=== PATIENT | female | born 2005 | race Two or more races ===

== ENCOUNTER 2025-06-18 13:35 | Inpatient (IN) | payer MEDICAID ==
[~2025-06-18] VITALS: Ht 160 cm; Wt 110.3 kg
--- NOTE | 2025-06-18 14:57 | ED.PDOC ---
GI ASSESSMENT HPI Comments [id number] FEMALE PRESENTS WITH A CHIEF COMPLAINT OF ABDOMINAL PAIN X MONTHS, BUT WORSENING TODAY WITH ASSOCIATED NAUSEA AND VOMITING. PATIENT STATES THAT HER PAIN IS LOCALIZED TO HER EPIGASTRIC REGION, RADIATING TO HER BACK SIDE AND UPPER CHEST WALL, DESCRIBES SHARP PAIN, AND RATES HER PAIN A 8/10 AT THIS TIME. PAT PHIL MENTIONS THAT SHE HAS HAD PAIN LIKE THIS BEFORE IN THE PAST, BUT NOT STRONG IT IS TODAY. PATIENT MENTIONS THAT IT HAS BEEN OFF AND ON FOR MONTHS. PT DENIES FEVER, SOB, HEADACHE, DIZZINESS AND OTHER COMPLAINTS. NO OTHER SYMPTOMS REPORTED AT THIS TIME OF CARE. Chief Complaint: Nausea/Vomiting Time Seen by MD: 14:50 Primary Care Provider: ALINE Oliva Notes: Nurses Notes, Medications, Allergies Allergies: Coded Allergies: NO KNOWN ALLERGIES (Unverified , 01/08/16) Information Source: Patient Mode of Arrival: Ambulatory Timing: Hours, Days, Months Duration: Since onset, Intermittent, Days Prehospital treatment: None Quality: Cramping, Sharp, Colicky Vomitus: Food Particles Stool: Normal Severity: Moderate Recent: None Recent Hx of: None Pain Location: Epigastric Associated sign and symptoms: Nausea, Vomiting, Abdominal Pain Past Medical History PAST MEDICAL HISTORY: Denies Surgical History: Denies all surgeries SOURCING SPECIALIST History: Denies all SOURCING SPECIALIST Hx Family History Family History: Reviewed,noncontributory to illness Social History Smoker: Non-Smoker Alcohol: Denies ETOH Use Drugs: Denies Drug Use Lives In: Home Constitutional: reports: others (ANXIOUS ); denies: chills, diaphoresis, fatigue, fever, malaise, sweats, weakness EENTM: denies: blurred vision, double vision, ear bleeding, ear discharge, ear drainage, ear pain, ear ringing, eye pain, eye redness, hearing loss, mouth pain, mouth swelling, nasal discharge, nose bleeding, nose congestion, nose pain, photophobia, tearing, throat pain, throat swelling, voice changes, others Respiratory: denies: cough, hemoptysis, orthopnea, SOB at rest, shortness of breath, SOB with excertion, stridor, wheezing, others Cardiovascular: denies: chest pain, dizzy spells, diaphoresis, Dyspnea on exertion, edema, irregular heart beat, left arm pain, lightheadedness, pal pitations, PND, syncope, others Gastrointestinal: reports: abdominal pain, nausea, vomiting; denies: abdomen distended, blood streaked bowels, constipated, diarrhea, dysphagia, difficulty swallowing, hematemesis, melena, poor appetite, poor fluid intake, rectal bleeding, rectal pain, others Genitourinary: denies: abnormal vagina bleeding, burning, dyspareunia, dysuria, flank pain, frequency, hematuria, incontinence, pain, , vagina discharge, urgency, others Neurological: denies: dizziness, fainting, headache, left sided numbness, left sided weakness, numbness, paresthesia, pre-existing deficit, right sided numbness, right sided weakness, seizure, speech problems, tingling, tremors, weakness, others Musculoskeletal: denies: back pain, gout, joint pain, joint swelling, muscle pain, muscle stiffness, neck pain, others Integumetry: denies: bruises, change in color, change in hair/nails, dryness, laceration, lesions, lumps, rash, wounds, others Allergic/Immunocompromised: denies: Difficulty Healing, Frequent Infections, Hives, Itching, others Hematologic/Lymphatic: denies: anemia, blood clots, easy bleeding, easy bruising, swollen glands, others Endocrine: denies: excessive hunger, excessive sweating, excessive thirst, excessive urination, flushing, intolerance to cold, intolerance to heat, unexplained weight gain, unexplained weight loss, others Psychiatric: reports: anxiety; denies: bipolar disorder, depression, hopeless, panic disorder, schizophrenia, sleepless, suicidal, others All Other Systems: Reviewed and Negative Physical Exam General Appearance: Mild Distress, Obese, Other (ANXIOUS ) HEENT: Normal ENT Inspection, PERRL/EOMI, Pharynx Normal, TMs Normal Neck: Full Range of Motion, Non-Tender, Normal, Normal Inspection Respiratory: Chest Non-Tender, Lungs Clear, No Accessory Muscle Use, No Respiratory Distress, Normal Breath Sounds Cardiovascular: No Edema, No JVD, No Murmur, No Gallop, Normal Peripheral Pulses, Regular Rate/Rhythm Breast Exam: Deferred Gastrointestinal: Epigastric, No Organomegaly, No Pulsatile Mass, Normal Bowel Sounds, Soft, Tenderness (EPIGASTRIC, NO GUARDING AND REBOUND TENDERNESS. ) Genitalia: Deferred Pelvic: Deferred Rectal: Deferred Extremities: No calf tenderness, Normal capillary refill, Normal inspection, Normal range of motion, Non-tender, No pedal edema Musculoskeletal : Apperance: Normal Neurologic: Alert, remote control assembler II-XII nml as Tested, No Motor Deficits, Normal Affect, Normal Mood, No Sensory Deficits Cerebellar Function: Normal Reflexes: Normal Skin: Dry, Normal Color, Warm Peripheral Pulses: 2+ carotid (R), 2+ carotid (L) Lymphatic: No Adenopathy EKG EKG : Pulse Rate (adult): 57 [place]: Normal Block: None Hypertrophy: None ST: Normal Was a procedure done? Was a procedure done?: No GI differential Dx Differential Diagnosis: Cholangitis, Cholecystitis, Constipation, Gastritis/PUD, Gastroenteritis, Inflammatory BD, Pancreatitis, UTI, Urolithiasis X-Ray, Labs, Meds, VS Vital Signs Date Time Temp Pulse Resp B/P (MAP) Pulse Ox O2 Delivery O2 Flow Rate FiO2 06/18/25 17:32 98.3 71 17 98/78 (85) 98 98.3 06/18/25 16:19 57 06/18/25 14:48 57 06/18/25 14:43 97.7 72 117/49 (71) 99 97.7 06/18/25 14:40 Room Air* 0 21 06/18/25 13:36 97.6 64 18 106/61 100 97.6 Lab Test 06/18/25 16:50 06/18/25 15:27 Range/Units Urine Color Yellow Yellow Urine Clarity Turbid H Clear Urine pH 7.5 5.0-9.0 Urine Specific [place] 1.028 1.001-1.035 Urine Protein Trace H Negative Urine Ketones Negative Negative Urine Blood Negative Negative /uL Urine Nitrite Negative Negative Urine Bilirubin Negative Negative Urine Urobilinogen 2 H Negative mg/dL Urine Leukocyte Esterase Negative Negative /uL Urine RBC 2 0 - 4 /hpf Urine Microscopic WBC 3 0-5 /HPF Urine Squamous Epithelial Cells Mod <5 /hpf Urine Bacteria None seen None Seen /hpf Urine Mucus Few None Seen Urine Glucose Normal Normal mg/dL Urine Test Negative Negative White Blood Count 11.7 H 4.4-10.8 10^3/uL Red Blood Count 4.36 4.0-5.20 10^6/uL Hemoglobin 11.3 L 12.2-16.2 g/dL Hematocrit 35.2 L 36.0-46.0 % Mean Corpuscular Volume 80.8 80.0-100.0 fL Mean Corpuscular Hemoglobin 26.0 L 28.0-32.0 pg Mean Corpuscular Hemoglobin Concent 32.2 32.0-36.0 g/dL Red Cell Distribution Width 16.6 H 11.8-14.3 % Platelet Count 388 140-450 10^3/uL Mean Platelet Volume 7.5 6.9-10.8 fL Neutrophils (%) (Auto) 88.4 H 37.0-80.0 % Lymphocytes (%) (Auto) 6.7 L 10.0-50.0 % Monocytes (%) (Auto) 4.6 0.0-12.0 % Eosinophils (%) (Auto) 0.1 0.0-7.0 % Basophils (%) (Auto) 0.2 0.0-2.0 % Neutrophils # (Auto) 10.3 H 1.6-8.6 10 ^3/uL Lymphocytes # (Auto) 0.8 0.4-5.4 10 ^3/uL Monocytes # (Auto) 0.5 0-1.3 10 ^3/uL Eosinophils # (Auto) 0 0-0.8 10 ^3/uL Basophils # (Auto) 0 0-0.2 10 ^3/uL Nucleated Red Blood Cells 0.0 % Sodium Level 141 136-145 mmol/L Potassium Level 4.7 3.5-5.1 mmol/L Chloride Level 108 H 98-107 mmol/L Carbon Dioxide Level 25 20-31 mmol/L Anion Gap 8 5-15 Blood Urea Nitrogen 8 L 9-23 mg/dL Creatinine 0.68 0.550-1.02 mg/dL Glomerular Filtration Rate Calc 126 >90 mL/min BUN/Creatinine Ratio 11.8 10.0-20.0 Serum Glucose 130 H 74-106 mg/dL Calcium Level 8.8 8.7-10.4 mg/dL Total Bilirubin 0.5 0.2-1.0 mg/dL Aspartate Amino Transferase (AST) 68 H 13-40 U/L Alanine Aminotransferase (ALT) 40 7-40 U/L Alkaline Phosphatase 76 46-116 U/L Troponin I High Sensitivity < 3 L </=34 ng/L Total Protein 7.1 5.7-8.2 g/dL Albumin 4.4 3.2-4.8 g/dL Lipase > 3500 H 12-53 U/L PATIENT: NAYLA CASTROCCT: [id number]: [id number] : 2005 LOC: ER ROOM / BED: / AGE / SEX: 20 / F ADM STATUS: REG ER SERVICE [id number] ORDERING PHYSICIAN: IRMA ZURITA PROCEDURE(s): GBUS - GALLBLADDER REASON: EPIGASTRIC PAIN TO MIDDLE BACK ORDER NUMBER(s): [id number], ACCESSION NUMBER(s): [id number] INDICATION: EPIGASTRIC PAIN TO MIDDLE BACK TECHNIQUE: Multiple real-time sonographic images of the abdomen were obtained. COMPARISON: None FINDINGS: The liver is homogenous in echogenicity. The liver measures 18 cm. No intrahepatic biliary ductal dilatation is noted. The gallbladder wall measures 0. 2 4 cm and is unremarkable. Mobile gallstones noted in the gallbladder. The common duct measures 0.68 cm and is unremarkable. No pericholecystic fluid is noted. The right kidney measures 9.55 cm. No hydronephrosis. The pancreas is not well visualized due to obscuration from bowel gas. IMPRESSION: 1. Multiple small gallstones in the gallbladder. Common bile duct upper limits of normal. 2. Negative sonographic Moura's sign ATED BY: ODELL OLVERA Jr., DO DICTATED DATE/TIME: 06/18/25 160 SIGNED BY: ODELL OLVERA Jr., SIGNED DATE/TIME: 06/18/25 160 CC: X-Ray, Labs, Meds, VS Comment EXTERNAL MEDICAL RECORDS REVIEWED: [NONE] INDEPENDENT HISTORIANS: [NONE] SOCIAL DETERMINANTS OF HEALTH: [NONE] LABS ORDERED: CBC, CMP, LIPASE, UA, REVIEWED AND INTERPRETED RESULTS: LIPASE>3000 IMAGING ORDERED: GALLBLADDER US TREATMENTS ORDERED: 0.9 NS 1L, ZOFRAN 4MG IVP, TORADOL 30MG IVP AND ROCEPHIN 1GM IVPB PROCEDURES PERFORMED: NONE CRITICAL CARE TIME: NONE I HAVE DISCUSSED THE PATIENT WITH THE ATTENDING PHYSICIAN, DR. AMINA GUTIERREZ, AND SHE AGREES WITH THE PATIENT'S PLAN OF CARE AND DISPOSITION. BASED ON HISTORY OF PRESENT ILLNESS, AND PHYSICAL EXAM, PATIENT WILL BE ADMITTED [facility] FOR FURTHER EVALUATION AND TREATMENT. Images Reviewed?: Images reviewed and evaluated by me Time of 1ST Reevaluation: 15:20 Reevaluation 1ST: Unchanged Time of 2ND Reevaluation: 17:45 Reevaluation 2ND: Unchanged Patient Education/Counseling: Diagnosis, Treatment Family Education/Counseling: Diagnosis, Treatment SEPSIS Sepsis Screen Date sepsis recognized/suspect: Jun 18, 2025 Time Sepsis recognized/suspect: 1341 Recent Procedure: No On Antibiotic Therapy: No Respiratory Rate >20: No Heart Rate >90: No Temp<36 C (96.8 F) or >38.3 C: No SBP <90 or MAP <65 mmHG: No New Acute Mental Status Change: No Is the patient on CPAP, BIPAP,: No Physician Orders Gallbladder (06/18/25 14:53) Heplock Iv (06/18/25 ) Sodium Chloride 0.9% (06/18/25 17:30) Ceftriaxone 1gm/50ml D5w (Rocephin) (06/18/25 17:30) Vital Signs Date Time Temp Pulse Resp B/P (MAP) Pulse Ox O2 Delivery O2 Flow Rate FiO2 06/18/25 17:32 98.3 71 17 98/78 (85) 98 98.3 06/18/25 16:19 57 06/18/25 14:48 57 06/18/25 14:43 97.7 72 117/49 (71) 99 97.7 06/18/25 14:40 Room Air* 0 21 06/18/25 13:36 97.6 64 18 106/61 100 97.6 Laboratory Tests Test 06/18/25 15:27 White Blood Count 11.7 10^3/uL (4.4-10.8) H Departure 1 Departure Time of Disposition: 17:44 Impression: Primary Impression: Cholelithiases Qualified Codes: K80.20 - Calculus of gallbladder without cholecystitis without obstruction Additional Impression: Acute pancreatitis Qualified Codes: K85.00 - Idiopathic acute pancreatitis without necrosis or infection Disposition: 09 ADMITTED INPATIENT Admit to: Med Surg Condition: Serious Critical Care Note Critical Care Time?: No Stability Stability form required: Yes Unstable for transfer: Requires medication, ED Physician Assesment, Possible rapid decline Heart Score Heart Score: Heart Score Response (Comments) Value History N/A 0 EKG N/A 0 Age N/A 0 Risk Factors N/A 0 Troponin N/A 0 Total 0 I personally scribed for IRMA ZURITA ([email or web address]) on 06/18/25 at 14:57. Electronically submitted by Florentin Godfrey ([email or web address]). I personally scribed for IRMA ZURITA ([email or web address]) on 06/18/25 at 16:57. Electronically submitted by Florentin Godfrey ([email or web address]). I personally scribed for IRMA ZURITA ([email or web address]) on 06/18/25 at 17:17. El ectronically submitted by Florentin Godfrey ([email or web address]). IRMA ZURITA Jun 18, 2025 14:57
[2025-06-18 15:47] LABS: Hematocrit 35.2 % (36.0-46.0); Hemoglobin 11.3 g/dL (12.2-16.2); Mean Corpuscular Hemoglobin 26.0 pg (28.0-32.0); Mean Corpuscular Volume 80.8 fL (80.0-100.0); Nucleated Red Blood Cells % 0.0 %
[2025-06-18 16:03] LABS: Albumin 4.4 g/dL (3.2-4.8); Alkaline Phosphatase 76 U/L (46-116); Anion Gap 8 (5-15); BUN/Creatinine Ratio 11.8 (10.0-20.0); Bilirubin, Total 0.5 mg/dL (0.2-1.0); Calcium 8.8 mg/dL (8.7-10.4); Carbon Dioxide 25 mmol/L (20-31); Potassium 4.7 mmol/L (3.5-5.1); Sodium 141 mmol/L (136-145); Total Protein 7.1 g/dL (5.7-8.2)
[2025-06-18 16:05] LABS: Alanine Aminotransferase 40 U/L (7-40); Blood Urea Nitrogen 8 mg/dL (9-23); Chloride 108 mmol/L (98-107); Glucose 130 mg/dL (74-106)
--- NOTE | 2025-06-18 16:05 | DVH ---
INDICATION: EPIGASTRIC PAIN TO MIDDLE BACK TECHNIQUE: Multiple real-time sonographic images of the abdomen were obtained. COMPARISON: None FINDINGS: The liver is homogenous in echogenicity. The liver measures 18 cm. No intrahepatic biliary ductal dilatation is noted. The gallbladder wall measures 0. 2 4 cm and is unremarkable. Mobile gallstones noted in the gallbla dder. The common duct measures 0.68 cm and is unremarkable. No pericholecystic fluid is noted. The right kidney measures 9.55 cm. No hydronephrosis. The pancreas is not well visualized due to obscuration from bowel gas. IMPRESSION: 1. Multiple small gallstones in the gallbladder. Common bile duct upper limits of normal. 2. Negative sonographic Moura's sign
[2025-06-18 16:18] LABS: Lipase > 3500 U/L (12-53)
[2025-06-18 17:10] LABS: Urine Protein, UAD TRACE (Negative)
[2025-06-18] MEDS: ONDANSETRON HCL 4 MG/2 ML VIAL IV ONE (18:23)
[2025-06-18] MEDS: SODIUM CHLORIDE 0.9% 1,000 ML IV ONE (18:24)
[2025-06-18] MEDS: KETOROLAC TROMETH 30 MG/ML 1ML VIAL IV ONE (18:24)
--- NOTE | 2025-06-18 18:57 | DVHHP2 ---
Admitting Diagnosis: Abdominal pain History of Present Illness [id number] FEMALE PRESENTS WITH A CHIEF COMPLAINT OF ABDOMINAL PAIN X MONTHS, BUT WORSENING TODAY WITH ASSOCIATED NAUSEA AND VOMITING. PATIENT STATES THAT HER PAIN IS LOCALIZED TO HER EPIGASTRIC REGION, RADIATING TO HER BACK SIDE AND UPPER CHEST WALL, DESCRIBES SHARP PAIN, AND RATES HER PAIN A 8/10 AT THIS TIME. PATIENT MENTIONS THAT SHE HAS HAD PAIN LIKE THIS BEFORE IN THE PAST, BUT NOT STRONG IT IS TODAY. PATIENT MENTIONS THAT IT HAS BEEN OFF AND ON FOR MONTHS. PT DENIES FEVER, SOB, HEADACHE, DIZZINESS AND OTHER COMPLAINTS. NO OTHER SYMPTOMS REPORTED AT THIS TIME OF CARE. PAST MEDICAL HISTORY: Denies Surgical History: Denies all surgeries RUBY ON RAILS SOFTWARE DEVELOPER History: Denies all RUBY ON RAILS SOFTWARE DEVELOPER Hx Family History Family History: Reviewed,noncontributory to illness Social History Smoker: Non-Smoker Alcohol: Denies ETOH Use Drugs: Denies Drug Use Lives In: Home Allergies: Coded Allergies: NO KNOWN ALLERGIES (Unverified , 01/08/16) Vital Signs Vital Signs Date Time Temp Pulse Resp B/P (MAP) Pulse Ox O2 Delivery O2 Flow Rate FiO2 06/18/25 17:32 98.3 71 17 98/78 (85) 98 98.3 06/18/25 14:40 Room Air* 0 21 Physical Exam Generally-27 years old woman, morbidly obese, sitting on chair. Mild distress HEENT-atraumatic, normocephalic Heart-regular rate and rhythm Lungs clear to auscultate Abdomen soft nontender right upper quadrant, nondistended Lower no edema cyanosis Neuro-AO x3, no focal deficits SEPSIS Sepsis Screen Date sepsis recognized/suspect: Jun 18, 2025 Time Sepsis recognized/suspect: 1341 Recent Procedure: No On Antibiotic Therapy: No Respiratory Rate >20: No Heart Rate >90: No Temp<36 C (96.8 F) or >38.3 C: No SBP <90 or MAP <65 mmHG: No New Acute Mental Status Change: No Is the patient on CPAP, BIPAP,: No Physician Orders Gallbladder (06/18/25 14:53) Heplock Iv (06/18/25 ) Ceftriaxone Ivpb Rocephin (06/19/25 09:00) Metronidazole Ivpb Flagyl (06/18/25 20:00) Procalcitonin (06/18/25 19:51) C-Reactive Protein (06/18/25 19:51) NS (06/18/25 20:00) Comprehensive Metabolic Panel (06/19/25 05:00) Comprehensive Metabolic Panel (06/20/25 05:00) Comprehensive Metabolic Panel (06/21/25 05:00) Comprehensive Metabolic Panel (06/22/25 05:00) Comprehensive Metabolic Panel (06/23/25 05:00) Complete Blood Count (06/19/25 05:00) Complete Blood Count (06/20/25 05:00) Complete Blood Count (06/21/25 05:00) Complete Blood Count (06/22/25 05:00) Complete Blood Count (06/23/25 05:00) * Surgical Consult (06/18/25 ) Ct Ab Pel Wo Con-No Oral Or Iv (06/18/25 19:51) Urine (06/18/25 ) Admit (06/18/25 19:51) Code Status (06/18/25 19:51) Vital Signs .PER UNIT PROTOCOL (06/18/25 19:51) Review Orders With Adm. (06/18/25 19:51) Encourage Activity As Tolerate (06/18/25 19:51) Sodium Chloride Lock (Saline Lock Ns) (06/18/25 22:00) Vital Signs Date Time Temp Pulse Resp B/P (MAP) Pulse Ox O2 Delivery O2 Flow Rate FiO2 06/18/25 17:32 98.3 71 17 98/78 (85) 98 98.3 06/18/25 16:19 57 06/18/25 14:48 57 06/18/25 14:43 97.7 72 117/49 (71) 99 97.7 06/18/25 14:40 Room Air* 0 21 06/18/25 13:36 97.6 64 18 106/61 100 97.6 Laboratory Tests Test 06/18/25 15:27 White Blood Count 11.7 10^3/uL (4.4-10.8) H Medications Medications Dose Ordered Sig/Joe Route Start Time Stop Time Status Last Admin Dose Admin Ceftriaxone Sodium 50 ml @ 100 mls/hr ONCE ONCE IV 06/18/25 17:30 06/18/25 17:59 DC 06/18/25 18:23 Ketorolac Tromethamine 30 mg ONCE ONCE IV 06/18/25 17:30 06/18/25 17:31 DC 06/18/25 18:24 Ondansetron HCl 4 mg ONCE ONCE IV 06/18/25 17:30 06/18/25 17:31 DC 06/18/25 18:23 Sodium Chloride 1,000 ml @ 1,000 mls/hr Q1H ONCE IV 06/18/25 17:30 06/18/25 18:29 DC 06/18/25 18:24 Results Labs Test 06/18/25 16:50 06/18/25 15:27 Range/Units Urine Color Yellow Yellow Urine Clarity Turbid H Clear Urine pH 7.5 5.0-9.0 Urine Specific [place] 1.028 1.001-1.035 Urine Protein Trace H Negative Urine Ketones Negative Negative Urine Blood Negative Negative /uL Urine Nitrite Negative Negative Urine Bilirubin Negative Negative Urine Urobilinogen 2 H Negative mg/dL Urine Leukocyte Esterase Negative Negative /uL Urine RBC 2 0 - 4 /hpf Urine Microscopic WBC 3 0-5 /HPF Urine Squamous Epithelial Cells Mod <5 /hpf Urine Bacteria None seen None Seen /hpf Urine Mucus Few None Seen Urine Glucose Normal Normal mg/dL Urine Test Negative Negative White Blood Count 11.7 H 4.4-10.8 10^3/uL Red Blood Count 4.36 4.0-5.20 10^6/uL Hemoglobin 11.3 L 12.2-16.2 g/dL Hematocrit 35.2 L 36.0-46.0 % Mean Corpuscular Volume 80.8 80.0-100.0 fL Mean Corpuscular Hemoglobin 26.0 L 28.0-32.0 pg Mean Corpuscular Hemoglobin Concent 32.2 32.0-36.0 g/dL Red Cell Distribution Width 16.6 H 11.8-14.3 % Platelet Count 388 140-450 10^3/uL Mean Platelet Volume 7.5 6.9-10.8 fL Neutrophils (%) (Auto) 88.4 H 37.0-80.0 % Lymphocytes (%) (Auto) 6.7 L 10.0-50.0 % Monocytes (%) (Auto) 4.6 0.0-12.0 % Eosinophils (%) (Auto) 0.1 0.0-7.0 % Basophils (%) (Auto) 0.2 0.0-2.0 % Neutrophils # (Auto) 10.3 H 1.6-8.6 10 ^3/uL Lymphocytes # (Auto) 0.8 0.4-5.4 10 ^3/uL Monocytes # (Auto) 0.5 0-1.3 10 ^3/uL Eosinophils # (Auto) 0 0-0.8 10 ^3/uL Basophils # (Auto) 0 0-0.2 10 ^3/uL Nucleated Red Blood Cells 0.0 % Sodium Level 141 136-145 mmol/L Potassium Level 4.7 3.5-5.1 mmol/L Chloride Level 108 H 98-107 mmol/L Carbon Dioxide Level 25 20-31 mmol/L Anion Gap 8 5-15 Blood Urea Nitrogen 8 L 9-23 mg/dL Creatinine 0.68 0.550-1.02 mg/dL Glomerular Filtration Rate Calc 126 >90 mL/min BUN/Creatinine Ratio 11.8 10.0-20.0 Serum Glucose 130 H 74-106 mg/dL Calcium Level 8.8 8.7-10.4 mg/dL Total Bilirubin 0.5 0.2-1.0 mg/dL Aspartate Amino Transferase (AST) 68 H 13-40 U/L Alanine Aminotransferase (ALT) 40 7-40 U/L Alkaline Phosphatase 76 46-116 U/L Troponin I High Sensitivity < 3 L </=34 ng/L Total Protein 7.1 5.7-8.2 g/dL Albumin 4.4 3.2-4.8 g/dL Lipase > 3500 H 12-53 U/L Primary Diagnosis Acute gallstone pancreatitis Elevated LFTs Plan Elevated LFTs, elevated WBC Ceftriaxone, Flagyl for empiric antibiotics. Check CT abdomen and pelvis to assess for infection IV fluids Check pro count, CRP Surgery consult for acute gallstone pancreatitis NPO after midnight Clear liquid diet SCD for DVT prophylaxis PPI for GI prophylaxis Full code Plan discussed with: Patient Problems List: (1) Acute pancreatitis Status: Acute (2) Cholelithiases Status: Acute Date of Service: Jun 18, 2025 Billing Provider: MISTY RODGERS MD Common Visit Codes: [id number] INP/OBS CARE (HIGH) MISTY RODGERS MD Jun 18, 2025 18:57
[2025-06-18] MEDS ORDERED: ONDANSETRON HCL 4 MG/2 ML VIAL IV PRN (20:00)
[2025-06-18] MEDS ORDERED: ACETAMINOPHEN 325 MG TAB PO PRN (20:00)
[2025-06-18] MEDS ORDERED: DOCUSATE SOD 100 MG CAP PO PRN (20:00)
[2025-06-18] MEDS: SODIUM CHLOR 0.9% PF (SALINE LOCK) 10ML VIAL/SYR IV SCH (20:23)
[2025-06-18] MEDS: HYDROcodone-ACET 5/325MG TAB PO PRN (20:26)
--- NOTE | 2025-06-18 20:52 | DVH ---
Exam: CT CT AB PEL WO CON-NO ORAL OR IV History: assess for pancreatitis Comparison Study: None TECHNIQUE: Multidetector CT of the abdomen and pelvis without IV contrast. Axial, coronal and sagitta l multiplanar reformats were obtained from the axial data set by the technologist. Radiation Dose Information: CT Dose: CTDI volume is 21.27 mGy. Dose-length product is 3.92 mGy*cm FINDINGS: The lung bases are clear. Partially visualized heart is unremarkable. Mild hepatomegaly. Otherwise, liver, spleen, gallbladder, pancreas and adrenal glands are unremarkabl e. Kidneys, ureters and decompressed urinary bladder are unremarkable. Uterus and adnexa are unremarkab le. Small amount of free fluid within the cul-de-sac which is most likely physiologic. Stomach is unremarkable. Small bowel loops unremarkable. Appendix is unremarkable. Large bowel is un remarkable. No evidence of intraperitoneal free air or free fluid. No evidence of aortic aneurysm. No significant lymphadenopathy. Soft tissues unremarkable. No evidence of acute osseous abnormalities. Sclerotic focus of the right sacral bone which represent a small bone island with a blastic lesion not excluded. IMPRESSION: No evidence of acute abdominopelvic abnormalities. No evidence of acute pancreatitis.
[2025-06-18 23:10] VITALS: BP 110/58; PULSE 66; RESP 17; TEMP 98.4; O2SAT 100
[2025-06-18 23:24] VITALS: BP 110/58; PULSE 66; RESP 17; TEMP 98.4; O2SAT 100
[2025-06-19] VITALS (7 sets, daily range): BP systolic 91–112; BP diastolic 53–73; PULSE 63–74; RESP 16–18; TEMP 98–99; O2SAT 97–99
[2025-06-19 07:18] LABS: Hematocrit 30.9 % (36.0-46.0); Hemoglobin 10.0 g/dL (12.2-16.2); Mean Corpuscular Hemoglobin 25.9 pg (28.0-32.0); Mean Corpuscular Volume 80.1 fL (80.0-100.0); Nucleated Red Blood Cells % 0.0 %
[2025-06-19 07:39] LABS: Albumin 4.0 g/dL (3.2-4.8); Alkaline Phosphatase 68 U/L (46-116); Anion Gap 10 (5-15); BUN/Creatinine Ratio 11.3 (10.0-20.0); Carbon Dioxide 25 mmol/L (20-31); Glucose 84 mg/dL (74-106); Potassium 3.8 mmol/L (3.5-5.1); Sodium 143 mmol/L (136-145); Total Protein 6.1 g/dL (5.7-8.2)
[2025-06-19 07:40] LABS: Alanine Aminotransferase 48 U/L (7-40); Bilirubin, Total 0.6 mg/dL (0.2-1.0); Blood Urea Nitrogen 8 mg/dL (9-23); Calcium 8.6 mg/dL (8.7-10.4); Chloride 108 mmol/L (98-107)
[2025-06-19] MEDS: SODIUM CHLORIDE 0.9% 1,000 ML IV SCH (14:15)
--- NOTE | 2025-06-19 14:21 | DVHPN2 ---
Subjective Came for abdominal pain No abdominal pain today She had a similar episode few weeks ago She has a gallstones and acute pancreatitis Changes from previous H/P or p: Changes Objective Vitals Vital Signs Date Time Temp Pulse Resp B/P (MAP) Pulse Ox O2 Delivery O2 Flow Rate FiO2 06/19/25 10:06 98 Room Air* 0 21 06/19/25 09:00 98.4 74 16 99/60 (73) 98.4 Intake/Output Intake and Output 06/19/25 07:00 Intake Total 1050 ml Balance 1050 ml Intake IV Total 1050 ml General Appearance: Alert, Oriented X3, Cooperative, No acute distress Lungs: Clear to auscultation, Normal air movement Cardiovascular: Regular rate, Normal S1, Normal S2 Abdomen: Normal bowel sounds, Soft, No tenderness Extremities: No edema Medications Current Medications Medications Dose Ordered Sig/Joe Route Start Time Stop Time Status Last Admin Dose Admin Ceftriaxone Sodium 50 ml @ 100 mls/hr DAILY@1900 IV 06/19/25 19:00 Sodium Chloride 10 ml Q8HR IV 06/18/25 22:00 06/19/25 05:34 10 ML Docusate Sodium 100 mg BIDPRN PRN PO 06/18/25 20:00 Acetaminophen 650 mg Q6HP PRN PO 06/18/25 20:00 Acetaminophen/ Hydrocodone Bitart 1 tab Q4HP PRN PO 06/18/25 20:00 06/18/25 20:26 1 TAB Ondansetron HCl 4 mg Q4HP PRN IV 06/18/25 20:00 Morphine Sulfate 2 mg Q4HPRN PRN IV 06/18/25 20:00 Laboratory Results Laboratory Tests 06/19/25 06:39 Chemistry Test 06/18/25 15:27 06/19/25 06:39 Albumin 4.4 g/dL (3.2-4.8) 4.0 g/dL (3.2-4.8) Calcium Level 8.8 mg/dL (8.7-10.4) 8.6 mg/dL (8.7-10.4) L Total Protein 7.1 g/dL (5.7-8.2) 6.1 g/dL (5.7-8.2) Lipid panel Test 06/18/25 15:27 06/19/25 06:39 Lipase > 3500 U/L (12-53) H Pending LFT Test 06/18/25 15:27 06/19/25 06:39 Alanine Aminotransferase (ALT) 40 U/L (7-40) 48 U/L (7-40) H Alkaline Phosphatase 76 U/L (46-116) 68 U/L (46-116) Aspartate Amino Transferase (AST) 68 U/L (13-40) H 51 U/L (13-40) H Total Bilirubin 0.5 mg/dL (0.2-1.0) 0.6 mg/dL (0.2-1.0) Urinalysis Test 06/18/25 16:50 Urine Color Yellow (Yellow) Urine Clarity Turbid (Clear) H Urine pH 7.5 (5.0-9.0) Urine Specific [place] 1.028 (1.001-1.035) Urine Protein Trace (Negative) H Urine Ketones Negative (Negative) Urine Blood Negative /uL (Negative) Urine Nitrite Negative (Negative) Urine Bilirubin Negative (Negative) Urine Urobilinogen 2 mg/dL (Negative) H Urine Leukocyte Esterase Negative /uL (Negative) Urine RBC 2 /hpf (0 - 4) Urine Microscopic WBC 3 /HPF (0-5) Urine Squamous Epithelial Cells Mod /hpf (<5) Urine Bacteria None seen /hpf (None Seen) Urine Mucus Few (None Seen) Urine Glucose Normal mg/dL (Normal) Urine Test Negative (Negative) Assessment/Plan Assessment/Plan Acute abdominal pain due to gallstone pancreatitis Gallstone pancreatitis Obesity Plan Keep NPO for now Check the lipase again and if it is better we will start the patient on clear liquid diet Surgical consultation IV fluids Plan discussed with: Patient My Orders Orders - DANYELLE LI MD Procedure Category Date Status Time Lipase LAB 06/19/25 In Process 14:07 Date of Service: Jun 19, 2025 Billing Provider: DANYELLE LI MD Common Visit Codes: [id number] INP/OBS CARE(HIGH) DANYELLE LI MD Jun 19, 2025 14:21
[2025-06-20] VITALS (8 sets, daily range): BP systolic 98–119; BP diastolic 55–78; PULSE 64–82; RESP 15–18; TEMP 98.1–98.9; O2SAT 96–100
[2025-06-20 06:45] LABS: Hematocrit 33.1 % (36.0-46.0); Hemoglobin 10.8 g/dL (12.2-16.2); Mean Corpuscular Hemoglobin 26.1 pg (28.0-32.0); Mean Corpuscular Volume 80.2 fL (80.0-100.0); Nucleated Red Blood Cells % 0.1 %
[2025-06-20 06:56] LABS: Alanine Aminotransferase 36 U/L (7-40); Albumin 4.2 g/dL (3.2-4.8); Alkaline Phosphatase 65 U/L (46-116); Anion Gap 9 (5-15); BUN/Creatinine Ratio 9.1 (10.0-20.0); Carbon Dioxide 25 mmol/L (20-31); Cholesterol 91 mg/dL (< 200); Glucose 80 mg/dL (74-106); Magnesium 1.9 mg/dL (1.6-2.6); Sodium 142 mmol/L (136-145); Total Protein 6.4 g/dL (5.7-8.2); Triglycerides 65 mg/dL (< 150)
[2025-06-20 06:57] LABS: Bilirubin, Total 0.5 mg/dL (0.2-1.0)
[2025-06-20 07:06] LABS: Blood Urea Nitrogen 6 mg/dL (9-23); Calcium 8.6 mg/dL (8.7-10.4); Chloride 108 mmol/L (98-107); HDL Cholesterol 31 mg/dL (40-59); Potassium 3.4 mmol/L (3.5-5.1)
[2025-06-20] MEDS: SODIUM CHLORIDE 0.9% 1,000 ML IV ONE (07:15)
[2025-06-20] MEDS: POTASSIUM CHL 20 Meq TABLET PO ONE (09:37)
--- NOTE | 2025-06-20 11:01 | DVHPN2 ---
Subjective She had more abdominal pain and nausea this morning after she had some clear liquids and therefore she stopped and she is NPO now pending surgical evaluation Changes from previous H/P or p: Changes Objective Vitals Vital Signs Date Time Temp Pulse Resp B/P (MAP) Pulse Ox O2 Delivery O2 Flow Rate FiO2 06/20/25 08:51 98.1 76 15 108/62 (77) 100 98.1 06/20/25 08:00 Room Air* 0 21 Intake/Output Intake and Output 06/20/25 07:00 Intake Total 2200 ml Balance 2200 ml Intake Oral 1600 ml IV Total 600 ml # Voids 7 General Appearance: Alert, Oriented X3, Cooperative, No acute distress Lungs: Clear to auscultation, Normal air movement Cardiovascular: Regular rate, Normal S1, Normal S2 Abdomen: Normal bowel sounds, Soft, No tenderness Extremities: No edema Medications Current Medications Medications Dose Ordered Sig/Joe Route Start Time Stop Time Status Last Admin Dose Admin Ceftriaxone Sodium 50 ml @ 100 mls/hr DAILY@1900 IV 06/19/25 19:00 06/19/25 19:41 100 MLS/HR Sodium Chloride 10 ml Q8HR IV 06/18/25 22:00 06/20/25 06:00 10 ML Docusate Sodium 100 mg BIDPRN PRN PO 06/18/25 20:00 Acetaminophen 650 mg Q6HP PRN PO 06/18/25 20:00 Acetaminophen/ Hydrocodone Bitart 1 tab Q4HP PRN PO 06/18/25 20:00 06/18/25 20:26 1 TAB Ondansetron HCl 4 mg Q4HP PRN IV 06/18/25 20:00 Morphine Sulfate 2 mg Q4HPRN PRN IV 06/18/25 20:00 Sodium Chloride 1,000 ml @ 100 mls/hr Q10H IV 06/19/25 14:15 06/20/25 00:15 100 MLS/HR Laboratory Results Laboratory Tests 06/20/25 06:15 Chemistry Test 06/20/25 06:15 Albumin 4.2 g/dL (3.2-4.8) Calcium Level 8.6 mg/dL (8.7-10.4) L Magnesium Level 1.9 mg/dL (1.6-2.6) Total Protein 6.4 g/dL (5.7-8.2) Lipid panel Test 06/20/25 06:15 Cholesterol Level 91 mg/dL (< 200) HDL Cholesterol 31 mg/dL (40-59) L Lipase Pending Triglycerides Level 65 mg/dL (< 150) LFT Test 06/20/25 06:15 Alanine Aminotransferase (ALT) 36 U/L (7-40) Alkaline Phosphatase 65 U/L (46-116) Aspartate Amino Transferase (AST) 24 U/L (13-40) Total Bilirubin 0.5 mg/dL (0.2-1.0) HgA1c, TSH Test 06/20/25 06:15 Hemoglobin A1c 5.1 % A1C (<5.7) Thyroid Stimulating Hormone (TSH) 3.52 uIU/mL (0.55-4.78) Urinalysis Test 06/18/25 16:50 Urine Color Yellow (Yellow) Urine Clarity Turbid (Clear) H Urine pH 7.5 (5.0-9.0) Urine Specific [place] 1.028 (1.001-1.035) Urine Protein Trace (Negative) H Urine Ketones Negative (Negative) Urine Blood Negative /uL (Negative) Urine Nitrite Negative (Negative) Urine Bilirubin Negative (Negative) Urine Urobilinogen 2 mg/dL (Negative) H Urine Leukocyte Esterase Negative /uL (Negative) Urine RBC 2 /hpf (0 - 4) Urine Microscopic WBC 3 /HPF (0-5) Urine Squamous Epithelial Cells Mod /hpf (<5) Urine Bacteria None seen /hpf (None Seen) Urine Mucus Few (None Seen) Urine Glucose Normal mg/dL (Normal) Urine Test Negative (Negative) Assessment/Plan Assessment/Plan Acute abdominal pain due to gallstone pancreatitis Gallstone pancreatitis Obesity Hypokalemia Plan Keep NPO for now Check the lipase again and if it is better we will start the patient on clear liquid diet Surgical consultation IV fluids 06/20/2025: NPO IV fluids Pain control as needed Lipase is pending today Surgical evaluation is pending Monitor closely Plan discussed with: Patient My Orders Orders - DANYELLE LI MD Procedure Category Date Status Time Sodium Chloride 0.9% PHA 06/19/25 In Process 14:15 Lipase LAB 06/20/25 In Process 08:54 Date of Service: Jun 20, 2025 Billing Provider: DANYELLE LI MD Common Visit Codes: [id number] INP/OBS CARE(HIGH) DANYELLE LI MD Jun 20, 2025 11:01
--- NOTE | 2025-06-20 11:42 | DVHINCON2 ---
Date of service: Jun 20, 2025 History of Present Illness 20-year-old female with a known history of gallstones complaining of three day history of epigastric abdominal pain that has now improved. Patient reports nausea and vomiting. Past Medical History Obesity Past Surgical History None Family History: Asthma Diabetes mellitus G8 MOTHER GRANDMA FH: breast cancer GRANDMA Hypertension G8 MOTHER GRANDMA Family History Noncontributory Social History Denies alcohol, tobacco, IV drug use Allergies: Coded Allergies: NO KNOWN ALLERGIES (Unverified , 01/08/16) Current Medications Current Medications Medications (Trade) Dose Ordered Sig/Joe Route PRN Reason Start Time Stop Time Status Last Admin Ceftriaxone Sodium 50 ml @ 100 mls/hr DAILY@1900 IV 06/19/25 19:00 06/19/25 19:41 Sodium Chloride 1,000 ml @ 100 mls/hr Q10H IV 06/19/25 14:15 06/20/25 00:15 Vital Signs Vital Signs Date Time Temp Pulse Resp B/P (MAP) Pulse Ox O2 Delivery O2 Flow Rate FiO2 06/20/25 08:51 98.1 76 15 108/62 (77) 100 98.1 06/20/25 08:00 Room Air* 0 21 Physical Exam GEN: Age-appropriate female in no acute distress. Alert. HEENT: Normocephalic atraumatic. Moist mucous membranes. Anicteric sclerae. CV: RRR Respiratory: CTAB ABD: Slightly obese abdomen with very minimal epigastric tenderness to palpation without guarding or rebound. Nondistended. Abdominal ultrasound shows small gallstones. Common bile duct within upper limits of normal. Labs/Diagnostic Data Labs Test 06/20/25 06:15 06/18/25 16:50 06/18/25 15:27 Range/Units White Blood Count 6.5 4.4-10.8 10^3/uL Red Blood Count 4.13 4.0-5.20 10^6/uL Hemoglobin 10.8 L 12.2-16.2 g/dL Hematocrit 33.1 L 36.0-46.0 % Mean Corpuscular Volume 80.2 80.0-100.0 fL Mean Corpuscular Hemoglobin 26.1 L 28.0-32.0 pg Mean Corpuscular Hemoglobin Concent 32.5 32.0-36.0 g/dL Red Cell Distribution Width 16.2 H 11.8-14.3 % Platelet Count 339 140-450 10^3/uL Mean Platelet Volume 7.5 6.9-10.8 fL Neutrophils (%) (Auto) 55.5 37.0-80.0 % Lymphocytes (%) (Auto) 36.1 10.0-50.0 % Monocytes (%) (Auto) 6.5 0.0-12.0 % Eosinophils (%) (Auto) 1.3 0.0-7.0 % Basophils (%) (Auto) 0.6 0.0-2.0 % Neutrophils # (Auto) 3.6 1.6-8.6 10 ^3/uL Lymphocytes # (Auto) 2.4 0.4-5.4 10 ^3/uL Monocytes # (Auto) 0.4 0-1.3 10 ^3/uL Eosinophils # (Auto) 0.1 0-0.8 10 ^3/uL Basophils # (Auto) 0 0-0.2 10 ^3/uL Nucleated Red Blood Cells 0.1 % Sodium Level 142 136-145 mmol/L Potassium Level 3.4 L 3.5-5.1 mmol/L Chloride Level 108 H 98-107 mmol/L Carbon Dioxide Level 25 20-31 mmol/L Anion Gap 9 5-15 Blood Urea Nitrogen 6 L 9-23 mg/dL Creatinine 0.66 0.550-1.02 mg/dL Glomerular Filtration Rate Calc 127 >90 mL/min BUN/Creatinine Ratio 9.1 L 10.0-20.0 Serum Glucose 80 74-106 mg/dL Hemoglobin A1c 5.1 <5.7 % A1C Calcium Level 8.6 L 8.7-10.4 mg/dL Magnesium Level 1.9 1.6-2.6 mg/dL Total Bilirubin 0.5 0.2-1.0 mg/dL Aspartate Amino Transferase (AST) 24 13-40 U/L Alanine Aminotransferase (ALT) 36 7-40 U/L Alkaline Phosphatase 65 46-116 U/L Total Protein 6.4 5.7-8.2 g/dL Albumin 4.2 3.2-4.8 g/dL Triglycerides Level 65 < 150 mg/dL Cholesterol Level 91 < 200 mg/dL LDL Cholesterol 52 < 100 mg/dL HDL Cholesterol 31 L 40-59 mg/dL Thyroid Stimulating Hormone (TSH) 3.52 0.55-4.78 uIU/mL Urine Color Yellow Yellow Urine Clarity Turbid H Clear Urine pH 7.5 5.0-9.0 Urine Specific [place] 1.028 1.001-1.035 Urine Protein Trace H Negative Urine Ketones Negative Negative Urine Blood Negative Negative /uL Urine Nitrite Negative Negative Urine Bilirubin Negative Negative Urine Urobilinogen 2 H Negative mg/dL Urine Leukocyte Esterase Negative Negative /uL Urine RBC 2 0 - 4 /hpf Urine Microscopic WBC 3 0-5 /HPF Urine Squamous Epithelial Cells Mod <5 /hpf Urine Bacteria None seen None Seen /hpf Urine Mucus Few None Seen Urine Glucose Normal Normal mg/dL Urine Test Negative Negative Troponin I High Sensitivity < 3 L </=34 ng/L C-Reactive Protein High Sensitivity 0.23 <1.0 mg/dL Assessment 1. Cholecystitis 2. Mild gallstone pancreatitis Plan/Recommendation 1. Recommended surgery. Patient will decide whether she wants to proceed with the surgery. Plan discussed with: Patient SARINA CASTANEDA MD Jun 20, 2025 11:42
[2025-06-20 14:33] LABS: INR 1.08 (0.9-1.15); Partial Thromboplastin Time 27.8 SEC (24.5-34.5); Prothrombin Time 11.4 sec (9.3-11.8)
[2025-06-21] VITALS (7 sets, daily range): BP systolic 90–106; BP diastolic 49–64; PULSE 76–110; RESP 16–20; TEMP 97.9–99.1; O2SAT 90–99
[2025-06-21 06:55] LABS: Hematocrit 34.5 % (36.0-46.0); Hemoglobin 11.3 g/dL (12.2-16.2); Mean Corpuscular Hemoglobin 26.4 pg (28.0-32.0); Mean Corpuscular Volume 80.2 fL (80.0-100.0); Nucleated Red Blood Cells % 0.0 %
[2025-06-21 07:02] LABS: Alanine Aminotransferase 30 U/L (7-40); Albumin 4.5 g/dL (3.2-4.8); Alkaline Phosphatase 68 U/L (46-116); Anion Gap 10 (5-15); BUN/Creatinine Ratio 9.2 (10.0-20.0); Calcium 9.0 mg/dL (8.7-10.4); Carbon Dioxide 23 mmol/L (20-31); Glucose 82 mg/dL (74-106); Potassium 4.0 mmol/L (3.5-5.1); Sodium 141 mmol/L (136-145); Total Protein 7.0 g/dL (5.7-8.2)
[2025-06-21 07:03] LABS: Bilirubin, Total 0.7 mg/dL (0.2-1.0)
[2025-06-21 07:22] LABS: Blood Urea Nitrogen 6 mg/dL (9-23); Chloride 108 mmol/L (98-107)
[2025-06-21] MEDS: ceFAZolin 2 GM/D5W50ml 50 ML IV ONE (08:29)
[2025-06-21] MEDS ORDERED: HYDROmorphone HCL 2 MG/ML VL/or syr IV PRN ×2 (08:30)
[2025-06-21] MEDS: KETOROLAC TROMETH 30 MG/ML 1ML VIAL IV ONE (08:30)
[2025-06-21] MEDS ORDERED: MORPHINE SULFATE INJ 2 MG/ml SYRG IV PRN (08:30)
[2025-06-21] MEDS ORDERED: MORPHINE SULFATE 4 MG/ML SYR/VIAL IV PRN (08:30)
[2025-06-21] MEDS ORDERED: METOCLOPRAMIDE HCL 5MG/ml INJ 2ml VIAL IV PRN (08:30)
[2025-06-21] MEDS ORDERED: KETAMINE 50mg/ML 1ml syringe ONE (08:44)
[2025-06-21] MEDS ORDERED: ONDANSETRON HCL 4 MG/2 ML VIAL ONE (08:45)
[2025-06-21] MEDS ORDERED: ROCURONIUM 10MG/ML 10ML VIAL IV ONE (08:45)
[2025-06-21] MEDS ORDERED: MIDAZOLAM HCL 2MG/2ML 2ml VIAL (1mg/ml) ONE (08:45)
[2025-06-21] MEDS ORDERED: LIDOCAINE 1% INJ PF 5ML AMP ONE (08:45)
[2025-06-21] MEDS ORDERED: HYDROmorphone HCL 2 MG/ML VL/or syr ONE (08:45)
[2025-06-21] MEDS ORDERED: LIDOCAINE 2% TOPICAL JELLY 5 ML URJT TOP ONE (08:45)
[2025-06-21] MEDS ORDERED: PROPOFOL 10 MG/ML 20 ML IV ONE (08:45)
[2025-06-21] MEDS ORDERED: fentaNYL CITRATE 100 MCG/2 ML VL ONE (08:45)
[2025-06-21] MEDS ORDERED: SUGAMMADEX 200mg/2ml Vial (100MG/ML) IV ONE (09:36)
--- NOTE | 2025-06-21 09:49 | DVHOP2 ---
Operative Report - 2 Report Details Date: 06/21/25 Preop Diagnosis: 1. Gallstone pancreatitis 2. Cholecystitis Postop Diagnosis: Same Surgeon: Orlin Tejada MD Otr Driver: None Anesthesiologist: Dr. Smith Anesthesia: General, Local Drains: None Consent: The surgery and its risks including but not limited to infection, bleeding requiring possible blood transfusion with the risk of hepatitis or HIV infection, possible open surgery, possible cystic duct leak or retained common bile duct stone requiring further intervention such as an ERCP were explained to the patient. All questions were answered to her satisfaction. She expressed verbal understanding and wished to proceed with the surgery. Complications: None Estimated Blood Loss: 20 mL Fluids: 500 mL Name of Procedure Performed Laparoscopic cholecystectomy Procedure Details Procedure Details: After induction of general anesthesia, patient's abdomen was prepped and draped in standard surgical fashion. A small infraumbilical incision was made and this incision was taken through the abdominal wall down to the fascia which was opened using electrocautery. Peritoneum was then bluntly divided gaining access to the intra-abdominal cavity. Interrupted 0 Vicryl sutures were placed through the fascial incision and using an open technique, Patricia trocar was introduced and secured using the Vicryl sutures. Abdomen was insufflated to 15 mmHg and camera was inserted. Visual examination of the intestine under the fascial incision appeared normal without injury. Under direct visualization, a 5 mm b ladeless trocar was placed in the subxiphoid region and two additional 5 mm bladeless trocars were placed in the right upper quadrant all under direct visualization. Examination of the right upper quadrant revealed a slightly distended and edematous gallbladder. This was grasped and retracted in a cephalad direction. Infundibulum was retracted laterally and careful blunt dissection was performed to identify the cystic duct which appeared normal in size. This was clipped and divided using Endoclips without complication. Cystic artery was located just next to the cystic duct and this was also clipped and divided using Endoclips without complication. Gallbladder was then removed from the liver bed using electrocautery. There was no bile or stone spillage during the maneuver. Gallbladder was then removed from the abdominal cavity using an endo pouch bag and sent off the surgical field. Abdomen was then re- insufflated and hemostasis in the liver bed was achieved using electrocautery. Right upper quadrant was then well irrigated until fluid was clear. Trocars were then removed under direct visualization as the abdomen was deflated. Additional interrupted 0 Vicryl sutures were placed through the infraumbilical fascial incision and the sutures were tied down closing off the infraumbilical fascia. Surgical sites were irrigated injected with 20 mL of 0.25% Marcaine with epinephrine Skin incisions were closed using tania. Sponge, needle, instrument count at the end of the case were reported to be correct by the nursing staff. The patient tolerated procedure well and at the time of dictation, he is being awakened from general anesthesia. Specimen: Gallbladder Condition Stable Disposition Still a Patient ORLIN TEJADA MD Jun 21, 2025 09:49
--- NOTE | 2025-06-21 10:39 | DVHPN2 ---
Subjective Lap christa today Changes from previous H/P or p: Changes Objective Vitals Vital Signs Date Time Temp Pulse Resp B/P (MAP) Pulse Ox O2 Delivery O2 Flow Rate FiO2 06/21/25 07:30 Room Air* 0 21 06/21/25 05:30 98.5 82 16 90/54 (66) 99 98.5 Intake/Output Intake and Output 06/21/25 07:00 Intake Total 1450 ml Balance 1450 ml Intake Oral 0 ml IV Total 1450 ml # Voids 7 # Bowel Movements 2 General Appearance: Alert, Oriented X3, Cooperative, No acute distress Lungs: Clear to auscultation, Normal air movement Cardiovascular: Regular rate, Normal S1, Normal S2 Abdomen: Normal bowel sounds, Soft, No tenderness Extremities: No edema Medications Current Medications Medications Dose Ordered Sig/Joe Route Start Time Stop Time Status Last Admin Dose Admin Ceftriaxone Sodium 50 ml @ 100 mls/hr DAILY@1900 IV 06/19/25 19:00 06/20/25 20:47 100 MLS/HR Sodium Chloride 10 ml Q8HR IV 06/18/25 22:00 06/21/25 06:10 10 ML Docusate Sodium 100 mg BIDPRN PRN PO 06/18/25 20:00 Acetaminophen 650 mg Q6HP PRN PO 06/18/25 20:00 Acetaminophen/ Hydrocodone Bitart 1 tab Q4HP PRN PO 06/18/25 20:00 06/18/25 20:26 1 TAB Ondansetron HCl 4 mg Q4HP PRN IV 06/18/25 20:00 Morphine Sulfate 2 mg Q4HPRN PRN IV 06/18/25 20:00 Morphine Sulfate 2 mg Q4H PRN IV 06/21/25 08:30 06/21/25 12:31 Sodium Chloride 1,000 ml @ 75 mls/hr [id number] IV 06/21/25 10:00 UNV Laboratory Results Laboratory Tests 06/21/25 05:54 Chemistry Test 06/21/25 05:54 Albumin 4.5 g/dL (3.2-4.8) Calcium Level 9.0 mg/dL (8.7-10.4) Total Protein 7.0 g/dL (5.7-8.2) Coagulation Test 06/20/25 14:05 Prothrombin Time 11.4 sec (9.3-11.8) Prothrombin Time INR 1.08 (0.9-1.15) Activated Partial Thromboplast Time 27.8 SEC (24.5-34.5) LFT Test 06/21/25 05:54 Alanine Aminotransferase (ALT) 30 U/L (7-40) Alkaline Phosphatase 68 U/L (46-116) Aspartate Amino Transferase (AST) 19 U/L (13-40) Total Bilirubin 0.7 mg/dL (0.2-1.0) Urinalysis Test 06/18/25 16:50 Urine Color Yellow (Yellow) Urine Clarity Turbid (Clear) H Urine pH 7.5 (5.0-9.0) Urine Specific [place] 1.028 (1.001-1.035) Urine Protein Trace (Negative) H Urine Ketones Negative (Negative) Urine Blood Negative /uL (Negative) Urine Nitrite Negative (Negative) Urine Bilirubin Negative (Negative) Urine Urobilinogen 2 mg/dL (Negative) H Urine Leukocyte Esterase Negative /uL (Negative) Urine RBC 2 /hpf (0 - 4) Urine Microscopic WBC 3 /HPF (0-5) Urine Squamous Epithelial Cells Mod /hpf (<5) Urine Bacteria None seen /hpf (None Seen) Urine Mucus Few (None Seen) Urine Glucose Normal mg/dL (Normal) Urine Test Negative (Negative) Assessment/Plan Assessment/Plan Acute abdominal pain due to gallstone pancreatitis Gallstone pancreatitis Obesity Hypokalemia Plan Keep NPO for now Check the lipase again and if it is better we will start the patient on clear liquid diet Surgical consultation IV fluids 06/20/2025: NPO IV fluids Pain control as needed Lipase is pending today Surgical evaluation is pending Monitor closely 06/21/2025: Surgery for today Pain control as needed Pancreatitis is resolved Monitor closely Plan discussed with: Patient Date of Service: Jun 21, 2025 Billing Provider: DANYELLE LI MD Common Visit Codes: [id number] INP/OBS CARE(HIGH) DANYELLE LI MD Jun 21, 2025 10:39
[2025-06-21] MEDS: SODIUM CHLORIDE 0.9% 1,000 ML IV SCH (12:08)
[2025-06-22 01:00] VITALS: BP 108/56; PULSE 81; RESP 18; TEMP 97.9; O2SAT 98
[2025-06-22 05:00] VITALS: BP 114/68; PULSE 80; RESP 18; TEMP 97.8; O2SAT 96
[2025-06-22 06:54] LABS: Hemoglobin 10.0 g/dL (12.2-16.2); Nucleated Red Blood Cells % 0.1 %
[2025-06-22 06:59] LABS: Hematocrit 30.9 % (36.0-46.0); Mean Corpuscular Hemoglobin 26.1 pg (28.0-32.0); Mean Corpuscular Volume 80.3 fL (80.0-100.0)
[2025-06-22 07:10] LABS: Alanine Aminotransferase 30 U/L (7-40); Albumin 4.2 g/dL (3.2-4.8); Alkaline Phosphatase 61 U/L (46-116); Anion Gap 11 (5-15); BUN/Creatinine Ratio 10.5 (10.0-20.0); Calcium 8.9 mg/dL (8.7-10.4); Carbon Dioxide 20 mmol/L (20-31); Glucose 85 mg/dL (74-106); Magnesium 1.8 mg/dL (1.6-2.6); Potassium 4.0 mmol/L (3.5-5.1); Sodium 140 mmol/L (136-145); Total Protein 6.5 g/dL (5.7-8.2)
[2025-06-22 07:11] LABS: Bilirubin, Total 0.4 mg/dL (0.2-1.0); Blood Urea Nitrogen 6 mg/dL (9-23); Chloride 109 mmol/L (98-107)
[2025-06-22 09:00] VITALS: BP 119/75; PULSE 101; RESP 18; TEMP 98.4; O2SAT 98
[2025-06-22] MEDS: MORPHINE SULFATE INJ 2 MG/ml SYRG IV PRN (09:47)
--- NOTE | 2025-06-22 11:04 | DVHPN2 ---
Progress Note Date Seen: Jun 22, 2025 Medical Necessity Reason Pt with a Central, PICC or Fol: No Objective vital signs Vital Sign Date Time Temp Pulse Resp B/P (MAP) Pulse Ox O2 Delivery O2 Flow Rate FiO2 06/22/25 09:47 101 18 119/75 06/22/25 09:00 98.4 98 98.4 06/22/25 08:00 Room Air* 0 21 Total Intake and Output 06/21/25 06/21/25 06/22/25 15:00 23:00 07:00 Intake Total 100 ml 820 ml 1100 ml Balance 100 ml 820 ml 1100 ml medications Current Medications Medications Dose Ordered Sig/Joe Route Start Time Stop Time Status Last Admin Dose Admin Ceftriaxone Sodium 50 ml @ 100 mls/hr DAILY@1900 IV 06/19/25 19:00 06/21/25 18:23 100 MLS/HR Sodium Chloride 10 ml Q8HR IV 06/18/25 22:00 06/22/25 06:00 10 ML Docusate Sodium 100 mg BIDPRN PRN PO 06/18/25 20:00 Acetaminophen 650 mg Q6HP PRN PO 06/18/25 20:00 Acetaminophen/ Hydrocodone Bitart 1 tab Q4HP PRN PO 06/18/25 20:00 06/21/25 22:34 1 TAB Ondansetron HCl 4 mg Q4HP PRN IV 06/18/25 20:00 Morphine Sulfate 2 mg Q4HPRN PRN IV 06/18/25 20:00 06/22/25 09:47 2 MG Sodium Chloride 1,000 ml @ 75 mls/hr [id number] IV 06/21/25 10:00 06/22/25 10:35 75 MLS/HR laboratory and microbiology Laboratory Tests 06/22/25 06:07 Test 06/22/25 06:07 Range/Units Serum Glucose 85 74-106 mg/dL Problem List/Assessment/Plan Problem List/Assessment/Plan 06/22/25 feels "better", afebrile, normotensive, wounds clean and well approximated, abdomen non distended, appropriately tender, advance diet, DC in AM Plan discussed with: Patient VERONICA BRONSON MD Jun 22, 2025 11:04
--- NOTE | 2025-06-22 11:31 | DVHPN2 ---
Subjective Complaining of mild abdominal pain No nausea no vomiting Changes from previous H/P or p: Changes Objective Vitals Vital Signs Date Time Temp Pulse Resp B/P (MAP) Pulse Ox O2 Delivery O2 Flow Rate FiO2 06/22/25 09:47 101 18 119/75 06/22/25 09:00 98.4 98 98.4 06/22/25 08:00 Room Air* 0 21 Intake/Output Intake and Output 06/22/25 07:00 Intake Total 2020 ml Balance 2020 ml Intake Oral 1470 ml IV Total 550 ml # Voids 5 General Appearance: Alert, Oriented X3, Cooperative, No acute distress Lungs: Clear to auscultation, Normal air movement Cardiovascular: Regular rate, Normal S1, Normal S2 Abdomen: Normal bowel sounds, Soft, No tenderness Extremities: No edema Medications Current Medications Medications Dose Ordered Sig/Joe Route Start Time Stop Time Status Last Admin Dose Admin Ceftriaxone Sodium 50 ml @ 100 mls/hr DAILY@1900 IV 06/19/25 19:00 06/21/25 18:23 100 MLS/HR Sodium Chloride 10 ml Q8HR IV 06/18/25 22:00 06/22/25 06:00 10 ML Docusate Sodium 100 mg BIDPRN PRN PO 06/18/25 20:00 Acetaminophen 650 mg Q6HP PRN PO 06/18/25 20:00 Acetaminophen/ Hydrocodone Bitart 1 tab Q4HP PRN PO 06/18/25 20:00 06/21/25 22:34 1 TAB Ondansetron HCl 4 mg Q4HP PRN IV 06/18/25 20:00 Morphine Sulfate 2 mg Q4HPRN PRN IV 06/18/25 20:00 06/22/25 09:47 2 MG Sodium Chloride 1,000 ml @ 75 mls/hr [id number] IV 06/21/25 10:00 06/22/25 10:35 75 MLS/HR Laboratory Results Laboratory Tests 06/22/25 06:07 Chemistry Test 06/22/25 06:07 Albumin 4.2 g/dL (3.2-4.8) Calcium Level 8.9 mg/dL (8.7-10.4) Magnesium Level 1.8 mg/dL (1.6-2.6) Total Protein 6.5 g/dL (5.7-8.2) LFT Test 06/22/25 06:07 Alanine Aminotransferase (ALT) 30 U/L (7-40) Alkaline Phosphatase 61 U/L (46-116) Aspartate Amino Transferase (AST) 22 U/L (13-40) Total Bilirubin 0.4 mg/dL (0.2-1.0) Urinalysis Test 06/18/25 16:50 Urine Color Yellow (Yellow) Urine Clarity Turbid (Clear) H Urine pH 7.5 (5.0-9.0) Urine Specific [place] 1.028 (1.001-1.035) Urine Protein Trace (Negative) H Urine Ketones Negative (Negative) Urine Blood Negative /uL (Negative) Urine Nitrite Negative (Negative) Urine Bilirubin Negative (Negative) Urine Urobilinogen 2 mg/dL (Negative) H Urine Leukocyte Esterase Negative /uL (Negative) Urine RBC 2 /hpf (0 - 4) Urine Microscopic WBC 3 /HPF (0-5) Urine Squamous Epithelial Cells Mod /hpf (<5) Urine Bacteria None seen /hpf (None Seen) Urine Mucus Few (None Seen) Urine Glucose Normal mg/dL (Normal) Urine Test Negative (Negative) Assessment/Plan Assessment/Plan Acute abdominal pain due to gallstone pancreatitis Gallstone pancreatitis Obesity Hypokalemia Plan Keep NPO for now Check the lipase again and if it is better we will start the patient on clear liquid diet Surgical consultation IV fluids 06/20/2025: NPO IV fluids Pain control as needed Lipase is pending today Surgical evaluation is pending Monitor closely 06/21/2025: Surgery for today Pain control as needed Pancreatitis is resolved Monitor closely 06/22/2025: Doing well Mild abdominal pain Tolerating diet Advance diet to soft mechanical Out of bed as tolerated Discharge planning for tomorrow Plan discussed with: Patient Date of Service: Jun 22, 2025 Billing Provider: DANYELLE LI MD Common Visit Codes: [id number] INP/OBS CARE(HIGH) DANYELLE LI MD Jun 22, 2025 11:31
[2025-06-22 13:00] VITALS: BP 105/65; PULSE 87; RESP 18; TEMP 98.3; O2SAT 97
[2025-06-22 17:00] VITALS: BP 108/53; PULSE 94; RESP 20; TEMP 98.2; O2SAT 97
[2025-06-22 21:00] VITALS: BP 100/56; PULSE 90; RESP 18; TEMP 98.2; O2SAT 97
[2025-06-23 05:00] VITALS: BP 109/67; PULSE 85; RESP 18; TEMP 99.1; O2SAT 97
[2025-06-23 06:01] LABS: Nucleated Red Blood Cells % 0.1 %
[2025-06-23 06:04] LABS: Hematocrit 28.7 % (36.0-46.0); Hemoglobin 9.4 g/dL (12.2-16.2); Mean Corpuscular Hemoglobin 26.4 pg (28.0-32.0); Mean Corpuscular Volume 80.1 fL (80.0-100.0)
[2025-06-23 06:21] LABS: Alanine Aminotransferase 20 U/L (7-40); Albumin 3.6 g/dL (3.2-4.8); Alkaline Phosphatase 53 U/L (46-116); Anion Gap 9 (5-15); BUN/Creatinine Ratio 14.3 (10.0-20.0); Carbon Dioxide 24 mmol/L (20-31); Glucose 79 mg/dL (74-106); Potassium 3.7 mmol/L (3.5-5.1); Sodium 142 mmol/L (136-145); Total Protein 6.0 g/dL (5.7-8.2)
[2025-06-23 06:23] LABS: Bilirubin, Total 0.2 mg/dL (0.2-1.0); Blood Urea Nitrogen 9 mg/dL (9-23); Calcium 8.1 mg/dL (8.7-10.4); Chloride 109 mmol/L (98-107)
[2025-06-23 09:00] VITALS: BP 116/70; PULSE 78; RESP 18; TEMP 97.9; O2SAT 98
--- NOTE | 2025-06-23 09:46 | DVHPN2 ---
Progress Note Date Seen: Jun 23, 2025 Medical Necessity Reason Pt with a Central, PICC or Fol: No Objective vital signs Vital Sign Date Time Temp Pulse Resp B/P (MAP) Pulse Ox O2 Delivery O2 Flow Rate FiO2 06/23/25 05:00 99.1 85 18 109/67 (81) 97 99.1 06/22/25 20:18 Room Air* 0 21 Total Intake and Output 06/22/25 06/22/25 06/23/25 15:00 23:00 07:00 Intake Total 250 ml 800 ml Balance 250 ml 800 ml medications Current Medications Medications Dose Ordered Sig/Joe Route Start Time Stop Time Status Last Admin Dose Admin Ceftriaxone Sodium 50 ml @ 100 mls/hr DAILY@1900 IV 06/19/25 19:00 06/22/25 18:59 100 MLS/HR Sodium Chloride 10 ml Q8HR IV 06/18/25 22:00 06/23/25 05:37 10 ML Docusate Sodium 100 mg BIDPRN PRN PO 06/18/25 20:00 Acetaminophen 650 mg Q6HP PRN PO 06/18/25 20:00 Acetaminophen/ Hydrocodone Bitart 1 tab Q4HP PRN PO 06/18/25 20:00 06/21/25 22:34 1 TAB Ondansetron HCl 4 mg Q4HP PRN IV 06/18/25 20:00 Morphine Sulfate 2 mg Q4HPRN PRN IV 06/18/25 20:00 06/22/25 14:46 2 MG Sodium Chloride 1,000 ml @ 75 mls/hr [id number] IV 06/21/25 10:00 06/23/25 00:34 75 MLS/HR laboratory and microbiology Laboratory Tests 06/23/25 05:44 Test 06/23/25 05:44 Range/Units Serum Glucose 79 74-106 mg/dL Problem List/Assessment/Plan Problem List/Assessment/Plan 06/22/25 feels "better", afebrile, normotensive, wounds clean and well approximated, abdomen non distended, appropriately tender, advance diet, DC in AM 06/23/25 feels well, wants to go home, abdomen non distended appropriately tender, wounds ok, will advance diet and she can be discharged Plan discussed with: Patient VERONICA BRONSON MD Jun 23, 2025 09:46
[2025-06-23 13:00] VITALS: BP 104/70; PULSE 81; RESP 16; TEMP 98.2; O2SAT 98
[2025-06-23] MEDS ORDERED: HYDR-4902 PO (13:39)
[2025-06-23] MEDS ORDERED: NALO4SPR2 (13:39)
--- NOTE | 2025-06-23 13:42 | DVHDS2 ---
Discharge Summary Date of Admission Jun 18, 2025 at 19:51 Date of Discharge: Jun 23, 2025 Labs/Diagnostic Data: Laboratory Results Test 06/23/25 05:44 06/22/25 06:07 06/20/25 14:05 06/20/25 06:15 White Blood Count 4.8 10^3/uL (4.4-10.8) Red Blood Count 3.58 10^6/uL (4.0-5.20) Hemoglobin 9.4 g/dL (12.2-16.2) Hematocrit 28.7 % (36.0-46.0) Mean Corpuscular Volume 80.1 fL (80.0-100.0) Mean Corpuscular Hemoglobin 26.4 pg (28.0-32.0) Mean Corpuscular Hemoglobin Concent 33.0 g/dL (32.0-36.0) Red Cell Distribution Width 16.8 % (11.8-14.3) Platelet Count 279 10^3/uL (140-450) Mean Platelet Volume 7.5 fL (6.9-10.8) Neutrophils (%) (Auto) 61.7 % (37.0-80.0) Lymphocytes (%) (Auto) 28.3 % (10.0-50.0) Monocytes (%) (Auto) 8.6 % (0.0-12.0) Eosinophils (%) (Auto) 0.9 % (0.0-7.0) Basophils (%) (Auto) 0.5 % (0.0-2.0) Neutrophils # (Auto) 3.0 10 ^3/uL (1.6-8.6) Lymphocytes # (Auto) 1.4 10 ^3/uL (0.4-5.4) Monocytes # (Auto) 0.4 10 ^3/uL (0-1.3) Eosinophils # (Auto) 0 10 ^3/uL (0-0.8) Basophils # (Auto) 0 10 ^3/uL (0-0.2) Nucleated Red Blood Cells 0.1 % Sodium Level 142 mmol/L (136-145) Potassium Level 3.7 mmol/L (3.5-5.1) Chloride Level 109 mmol/L (98-107) Carbon Dioxide Level 24 mmol/L (20-31) Anion Gap 9 (5-15) Blood Urea Nitrogen 9 mg/dL (9-23) Creatinine 0.63 mg/dL (0.550-1.02) Glomerular Filtration Rate Calc 129 mL/min (>90) BUN/Creatinine Ratio 14.3 (10.0-20.0) Serum Glucose 79 mg/dL (74-106) Calcium Level 8.1 mg/dL (8.7-10.4) Total Bilirubin 0.2 mg/dL (0.2-1.0) Aspartate Amino Transferase (AST) 14 U/L (13-40) Alanine Aminotransferase (ALT) 20 U/L (7-40) Alkaline Phosphatase 53 U/L (46-116) Total Protein 6.0 g/dL (5.7-8.2) Albumin 3.6 g/dL (3.2-4.8) Magnesium Level 1.8 mg/dL (1.6-2.6) Prothrombin Time 11.4 sec (9.3-11.8) Prothrombin Time INR 1.08 (0.9-1.15) Activated Partial Thromboplast Time 27.8 SEC (24.5-34.5) Hemoglobin A1c 5.1 % A1C (<5.7) Triglycerides Level 65 mg/dL (< 150) Cholesterol Level 91 mg/dL (< 200) LDL Cholesterol 52 mg/dL (< 100) HDL Cholesterol 31 mg/dL (40-59) Lipase 52 U/L (12-53) Thyroid Stimulating Hormone (TSH) 3.52 uIU/mL (0.55-4.78) Test 06/18/25 16:50 06/18/25 15:27 Urine Color Yellow (Yellow) Urine Clarity Turbid (Clear) Urine pH 7.5 (5.0-9.0) Urine Specific [place] 1.028 (1.001-1.035) Urine Protein Trace (Negative) Urine Ketones Negative (Negative) Urine Blood Negative /uL (Negative) Urine Nitrite Negative (Negative) Urine Bilirubin Negative (Negative) Urine Urobilinogen 2 mg/dL (Negative) Urine Leukocyte Esterase Negative /uL (Negative) Urine RBC 2 /hpf (0 - 4) Urine Microscopic WBC 3 /HPF (0-5) Urine Squamous Epithelial Cells Mod /hpf (<5) Urine Bacteria None seen /hpf (None Seen) Urine Mucus Few (None Seen) Urine Glucose Normal mg/dL (Normal) Urine Test Negative (Negative) Troponin I High Sensitivity < 3 ng/L (</=34) C-Reactive Protein High Sensitivity 0.23 mg/dL (<1.0) Other Laboratory Tests 06/23/25 05:44 Brief Hx & Hospital Course: 70-year-old female with a known history of morbid obesity classIII patient's presented to the hospital with the abdominal pain found to have acute gallstone induced pancreatitis. Patient's was kept NPO General surgery was consulted. Patient's pancreatitis has been resolved. Patient underwent laparoscopic cholecystectomy successfully. Patient is currently tolerating diet and cleared by General surgery to be discharged. Patient is being discharged under stable condition we will give some [place] and Narcan for home. No driving, no signing legal documents, no playing on machinery while on narcotics. Condition at Discharge: Stable Final Diagnosis/Problems List 1. Acute gallstone induced pancreatitis, resolved 2. Acute cholecystitis status post laparoscopic cholecystectomy 3. Morbid obesity classIII Discharge Disposition: Home SNF Discharge Will this Physician continue t: No Discharge Instruct/Medications Diet: Cardiac 2g Na,low cholest Activity: See Comment Activity comment: No driving, no signing legal documents, no playing on machinery while on narcotics. Follow Up/Referral: Follow up with the PCP in one week Follow up with Dr. Mak in one eight Medications: [place] and Narcan as prescribed. New Medications: Hydrocodone-Acetaminophen (Hydrocodone Bitartrate/AC 5-325 mg) 1 Tab Tab 1 TAB PO Q8HP PRN, #10 TAB Naloxone HCl (Narcan) 4 Mg/0.1 Ml Spr 4 MG NA [employer], #2 SPRAY Scheduled Naloxone HCl (Narcan), 4 MG NA [employer] Scheduled PRN Hydrocodone-Acetaminophen (Hydrocodone Bitartrate/AC 5-325 mg), 1 TAB PO Q8HP PRN Discharge Statement: "Patient was advised to return to the ER or call 911 if any headaches, dizziness, shortness of breath, chest pain, abdominal pain, bleeding, fevers, or worsening of medical condition. Patient was counseled about treatment plan, medications, possible side effects, patientverbalized understanding. All questions were answered to the best of my ability. This discharge took greater then 30 minutes in planning, reviewing documentation, counseling the patient, and discussing with other team members." ASSESSMENT ASSESSMENT Assessment 1. Acute gallstone induced pancreatitis, resolved 2. Acute cholecystitis status post laparoscopic cholecystectomy 3. Morbid obesity classIII Date of Service: Jun 23, 2025 Billing Provider: NICHOL BENOIT MD Common Visit Codes: 57414-ESF/OBS DISCH DAY >30min NICHOL BENOIT MD Jun 23, 2025 13:42
[2025-06-23 14:38] VITALS: TEMP 36.8
== END 2025-06-23 16:30 | disposition home or self-care (01) | DRG 263 ==
LOC: ER 13:35 → OVERFLOW 19:51 → EAST 06-19 21:57
PROVIDERS: ADMIT Internal Medicine; ATTEND Internal Medicine
PROC: 0FT44ZZ Resection of Gallbladder, Percutaneous Endoscopic Approach (ICD-10-PCS; principal; 2025-06-21 08:58)
DX: K85.10 Biliary acute pancreatitis without necrosis or infection (principal); K80.00 Calculus of gallbladder with acute cholecystitis without obstruction; E66.01 Morbid (severe) obesity due to excess calories; Z68.41 Body mass index [BMI] 40.0-44.9, adult; F41.9 Anxiety disorder, unspecified; E87.6 Hypokalemia; Z90.49 Acquired absence of other specified parts of digestive tract; Z83.3 Family history of diabetes mellitus; Z82.5 Family history of asthma and other chronic lower respiratory diseases; Z82.49 Family history of ischemic heart disease and other diseases of the circulatory system; Z80.3 Family history of malignant neoplasm of breast
CPT/HCPCS: 36415; 74176; 76705; 80053; 80061; 81001; 81025; 83036; 83690; 83735; 84443; 84484; 85025; 85610; 85730; 86141; 86850; 86900; 86901; 96365; 96375; G0378; J1100; J1885; J2250; J2405; J2704